=== PATIENT | female | born 1965 | race African-American/Black ===

== ENCOUNTER 2019-08-01 13:53 | Emergency (ER) | payer BC ==
[~2019-08-01] VITALS: Ht 160 cm; Wt 97.5 kg
[2019-08-01] MEDS ORDERED: MELOXICAM15 MG PO (15:07)
[2019-08-01 15:25] VITALS: BP 121/65
== END 2019-08-01 15:26 | disposition home or self-care (01) ==
LOC: ER 13:53
DX: G89.29 Other chronic pain (principal); M79.651 Pain in right thigh; Z90.710 Acquired absence of both cervix and uterus